=== PATIENT | female | born 1955 | race Caucasian/White ===

== ENCOUNTER → 2017-05-13 | Outpatient (CLI) | payer OTHER | LOC: FIMAGING 09:27 | PROVIDERS: ATTEND Physician Assistant Medical | DX: Z12.39 Encounter for other screening for malignant neoplasm of breast (principal); R59.0 Localized enlarged lymph nodes | CPT/HCPCS: G0202; G0204 ==

== ENCOUNTER → 2017-05-20 | Outpatient (CLI) | payer OTHER ==
[~2017-05-20] MED LIST: BUPIVACAINE 0.5% 10 ML SDV ONE; LIDO/EPI 1% **Not for Epidural 20 ML MDV ONE; LIDOCAINE 1% 300 MG/30 ML SDV ONE; THROMBIN (BOVINE) 5,000 UNIT VIAL TP ONE
== END ==
LOC: FIMAGING 07:08
PROVIDERS: ATTEND Obstetrics & Gynecology Gynecology
PROC: 0HBT3ZX Excision of Right Breast, Percutaneous Approach, Diagnostic (ICD-10-PCS; principal; 2017-05-20)
DX: C50.911 Malignant neoplasm of unspecified site of right female breast (principal)

== ENCOUNTER → 2017-06-08 | Outpatient (CLI) | payer OTHER ==
[~2017-06-08] MED LIST changes: -BUPIVACAINE 0.5% 10 ML SDV ONE; +GADOBUTROL 10 ML VIAL IVP ONE; -LIDO/EPI 1% **Not for Epidural 20 ML MDV ONE; -LIDOCAINE 1% 300 MG/30 ML SDV ONE; -THROMBIN (BOVINE) 5,000 UNIT VIAL TP ONE
== END ==
LOC: FIMAGING 06:57
PROVIDERS: ATTEND Internal Medicine Hematology & Oncology
DX: C50.911 Malignant neoplasm of unspecified site of right female breast (principal); N63.20 Unspecified lump in the left breast, unspecified quadrant
CPT/HCPCS: 0159T; A9585; C8908

== ENCOUNTER 2017-06-17 06:47 | Day surgery (SDC) | payer OTHER ==
[~2017-06-17 06:47] MED LIST changes: -GADOBUTROL 10 ML VIAL IVP ONE; +ceFAZolin 2 GM/DEXTROSE 100 ML IV ONE
--- NOTE | 2017-06-17 07:03 | PDHPUP ---
History & Physical Update H&P update statement: This history and physical update is based on an assessment of the patient which was completed after admission or registration (within 24 hours), but prior to the surgery/procedure. H&P update: H&P reviewed & patient examined, no change in patient's condition since H&P completed
--- NOTE | 2017-06-17 07:12 | PDGENHP ---
History and Physical History and Physical: Harmony Navarro is a 62 yo female who was referred to me by her PCP, Lesa Adames PA-C, for recently diagnosed right breast cancer. Harmony had a palpable right breast lump on physical exam that prompted a diagnostic bilateral mammogram on 05/13/2017, which showed a suspicious persistent nodule. This was followed up with a diagnostic US that reported suspicioun for a nodule in the right breast c/w a diseased intramammary LN. Harmony then underwent right breast needle biopsy on 05/20/2017 at 9 o'clock 8 cm from the nipple. Her pathology revealed she has an infiltrating ductal carcinoma, and r/o both the mass being a LN, and showed no evidence of lymphovascular involvement. The tumor is also characterized as Hira grade II/III, ER/PgR (+), with [id number] pending. Harmony had previously had a negative screening mammogram in 2016. Today, Harmony tells me she discovered the lump herself on exam. 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 She says that she will be seeing Dr. Kumar for oncology. (+) Breast Cancer in maternal grandmother and her maternal great aunt; (-) Prostate; (+) Grandmother's Neice; (-) Ovarian PMHx, PSHx, Daily medications, and Drug allergies reconciled in the exam room, and are accurate as listed below. PMH: DM, HTN, HLD ROS: 10 point review of systems is negative PE:Pleasant, well nourished and well groomed NCAT, PER, no scleral icterus CTAB RRR Breast mass 9 o'clock position 10 cm from the nipple A/P: 62 year old with right breast invasive ductal carcinoma I advised Harmony that she is a good candidate for a lumpectomy. We discussed the usual course of a lumpectomy, the sentinel lymph node biopsy, and the general timeline for pathology results intra and post-operatively. I described her likely course of recovery including pain management, and then the associated risks including bleeding, infection, breast deformity, delayed wound healing, the need to revise the lumpectomy at a later time, and the possibility an axillary dissection will be indicated. I explained that she will undergo radiation therapy if she chooses lumpectomy, and we discussed the 2 different courses available for that treatment.
[2017-06-17] MEDS ORDERED: LR 1,000 ML IV ONE (07:15)
[2017-06-17] MEDS ORDERED: LIDOCAINE 1% 2 ML INJ ID PRN (07:15)
[2017-06-17] MEDS ORDERED: ceFAZolin 2 GM/SWFI 2 GM/20 ML SYR IVP ONE (08:00)
--- NOTE | 2017-06-17 08:04 | PDANEPAE ---
ANE History of Present Illness 62 yo female with infiltrating ductal R breast cancer. ANE Past Medical History - Cardiovascular History Hx Hypertension: Yes Hx Arrhythmias: No Hx Chest Pain: No Hx Coronary Artery / Peripheral Vascular Disease: No Hx CHF / Valvular Disease: No Hx Palpitations: No Cardiovascular History Comment: pcp monitors bp meds, hypercholesterolemia - Pulmonary History Hx COPD: No Hx Asthma/Reactive Airway Disease: No Hx Recent Upper Respiratory Infection: No Hx Oxygen in Use at Home: No Hx Sleep Apnea: Yes Sleep Apnea Screening Result - Last Documented: Positive Pulmonary History Comment: seda positive uses cpap- instructed pt to bring dos - Neurologic History Hx Cerebrovascular Accident: No Hx Seizures: No Hx Dementia: No - Endocrine History Hx Diabetes: Yes Hypothyroid: No Endocrine History Comment: type 2 - Renal History Hx Renal Disorders: No - Liver History Hx Hepatic Disorders: No - Neurological & Psychiatric Hx Hx Neurological and Psychiatric Disorders: No - Cancer History Hx Cancer: Yes Cancer History Comment: breast cancer currently - Congenital Disorder History Hx Congenital Disorders: No - GI History Hx Gastrointestinal Disorders: No - Other Health History Other Health History: wears glasses - Chronic Pain History Chronic Pain: No - Surgical History Prior Surgeries: na ANE Review of Systems Review of Systems: - Exercise capacity METS (RN): 4 METS - Systems Constitutional: Reports: no symptoms Cardiac: Reports: no symptoms Respiratory: Reports: cough (dry cough x1 week. No fevers, non-productive. Pt believes it is allergy related.) Gastrointestinal: Reports: no symptoms ANE Patient History - Allergies Allergies/Adverse Reactions: No Known Allergies Allergy (Verified 05/31/17 16:10) - Home Medications Home medications: home medication list seen and reviewed Home Medications: Doxazosin Mesylate 05/31/17 [Last Taken 06/17/17] Herbals/Supplements -Info Only 05/31/17 [Last Taken 06/10/17] Losartan Potassium 05/31/17 [Last Taken 06/17/17] Metformin 1000 mg 05/31/17 [Last Taken 06/14/17] Metoprolol Succinate 05/31/17 [Last Taken 06/17/17] Spironolactone 05/31/17 [Last Taken 06/16/17] - NPO status NPO Since - Liquids (Date): 06/17/17 NPO Since - Liquids (Time): 04:30 NPO Since - Solids (Date): 06/16/17 NPO Since - Solids (Time): 19:00 - Anes Hx Anes Hx: awareness under anesthesia Hx Anesthesia Complications (with details): aware for colonoscopy. Wants to be more asleep for this procedure. - Smoking Hx Smoking Status: Never smoked Marijuana use: No - Alcohol Use Alcohol Use: Occasionally - Family Anes Hx Family Anes Hx: neg - N/A Family Hx Anesthesia Complications: none ANE Labs/Vital Signs - Vital Signs Blood Pressure: 142/93 Heart Rate: 87 Respiratory Rate: 18 O2 Sat (%): 95 Height: 162.56 cm Weight: 102.058 kg ANE Physical Exam - Airway Neck exam: FROM Mallampati Score: Class 2 Mouth exam: normal dental/mouth exam - Pulmonary Pulmonary: no rales or rhonchi, clear to auscultation - Cardiovascular Cardiovascular: regular rate and rhythym, systolic murmur (pt has long-standing heart murmur.) - ASA Status ASA Status: III ANE Anesthesia Plan Anesthesia Plan: GA w LMA
[2017-06-17] MEDS ORDERED: INSULIN REGULAR HUMAN 100 UNIT/ML SC ONE (08:08)
[2017-06-17] MEDS ORDERED: LIDOCAINE 1% 300 MG/30 ML SDV ONE (08:55)
[2017-06-17] MEDS ORDERED: BUPIVACAINE 0.5% 30 ML SDV ONE (08:55)
[2017-06-17] MEDS ORDERED: PROPOFOL/EMULSION 500 MG/50 ML BOTTLE IV ONE (09:05)
[2017-06-17] MEDS ORDERED: LIDOCAINE 2% 5 ML SDV ONE (09:05)
[2017-06-17] MEDS ORDERED: DEXAMETHASONE 4 MG/ML VIAL ONE ×2 (09:05)
[2017-06-17] MEDS ORDERED: fentaNYL 100 MCG/2 ML INJ ONE (09:05)
[2017-06-17] MEDS ORDERED: ONDANSETRON 4 MG/2 ML VIAL ONE (09:29)
[2017-06-17] MEDS ORDERED: KETOROLAC 30 MG/1 ML SDV ONE (09:39)
[2017-06-17] MEDS ORDERED: fentaNYL 100 MCG/2 ML INJ IVP PRN (09:48)
[2017-06-17] MEDS ORDERED: LR 500 ML IV PRN (09:48)
[2017-06-17] MEDS ORDERED: HYDROCODONE/APAP 5/325 TAB PO PRN (09:48)
[2017-06-17] MEDS ORDERED: ALBUTEROL 3 ML DEYVIAL IH PRN (09:48)
[2017-06-17] MEDS ORDERED: NALOXONE HCL 0.4 MG/ML INJ IVP PRN ×2 (09:48)
[2017-06-17] MEDS ORDERED: PROMETHAZINE HCL 25 MG/ML INJ IVP PRN (09:48)
[2017-06-17] MEDS ORDERED: ACETAMINOPHEN 500 MG TAB PO PRN (09:48)
--- NOTE | 2017-06-17 09:56 | POSTOPPROG ---
Post Op Note Date of Operation: 06/17/17 Surgeon: Narcisa Jones Research Psychologist: bhavin Anesthesiologist: rah Anesthesia: GET(General Endotracheal) Pre-op Diagnosis: R breast ca Post-op Diagnosis: same Indication: 62yo F with r breast invasive ductal ca Procedure: r lumpectomy with SLN biopsy Findings: SLN negative, palpable mass Inf/Abcess present in the surg proc area at time of surgery?: No Depth: Deep Incisional (Fascial) EBL: Minimal Specimen(s): R lumpectomy R SLN R breast additional margins x 5
[2017-06-17 10:29] VITALS: TEMP 97.2
--- NOTE | 2017-06-17 10:31 | POSTANESTH ---
Post Anesthetic Evaluation Cardiovascular Status: Normal, Stable Respiratory Status: Normal, Stable Level of Consciousness/Mental Status: Can Participate in Eval, Mildly Sleepy, Arousable Pain Control: Adequate, Prn Tx Ordered Nausea/Vomiting Control: Adequate, Prn Tx Ordered Complications Possibly Related to Anesthesia: None Noted (BS 137, no further interventions required.)
[2017-06-17] MEDS ORDERED: ENALAPRILAT DIHYDRATE 1.25 MG/ML VIAL ONE (11:08)
[2017-06-17] MEDS: ENALAPRILAT DIHYDRATE 1.25 MG/ML VIAL IVP PRN ×2 (11:09→11:34)
[2017-06-17 12:44] VITALS: PULSE 78
[2017-06-17 13:41] VITALS: BP 138/72; O2SAT 92
[2017-06-17 13:44] VITALS: RESP 13
--- NOTE | 2017-06-18 02:20 | GOP ---
[f rep st] OPERATIVE REPORT DATE OF OPERATION: 06/17/2017 SURGEON: Narcisa Jones MD LIGHTNING ROD INSTALLER: NANCY Silverman ANESTHESIA: General. ANESTHESIOLOGIST: Aria Askew MD PREOPERATIVE DIAGNOSIS: Right breast cancer. POSTOPERATIVE DIAGNOSIS: Right breast cancer. PROCEDURE PERFORMED: Right breast lumpectomy and right sentinel lymph node. FINDINGS: [facility] lymph node negative. SPECIMENS: Right breast lumpectomy, right sentinel lymph node, and additional margins. ESTIMATED BLOOD LOSS: 10 cc. INDICATIONS: The patient is a 62-year-old with right breast cancer. DESCRIPTION OF PROCEDURE: The patient was brought into the operating room, placed supine on the tabl e, and anesthesia was administered. Her right breast and axilla were prepped and draped in the usual sterile fashion. I made ellipse around the mass and created superior and inferior skin flaps. I di ssected down beyond the level of the mass. I inked this green anterior, red superior, yellow medial, orange lateral, blue inferior, black posterior. Submitted this to Pathology for fresh. I then, usi ng the same incision, was able to break into the axillary space. I identified the sentinel lymph nod e using the gamma probe. I excised this and sent it to Pathology for frozen. The lymph node was neg ative. In the lumpectomy cavity, I took an additional superior margin inked red, medial margin inked yellow, inferior margin inked blue, lateral margin inked orange, and posterior margin inked black. These were submitted to Pathology for permanent. Each wound was inspected for hemostasis, which was achieved. The wound was closed with 3-0 Vicryl followed by 4-0 Monocryl. Mastisol, Steri-Strips, an d sterile dressing were applied. She was awakened in the operating room, transferred to PACU in stab le condition. /[id number]/MODL
== END 2017-06-17 14:07 | disposition home or self-care (01) ==
LOC: FSGY 06:47
PROVIDERS: ATTEND Surgery
DX: C50.811 Malignant neoplasm of overlapping sites of right female breast (principal); Z17.0 Estrogen receptor positive status [ER+]; Z80.3 Family history of malignant neoplasm of breast; E11.9 Type 2 diabetes mellitus without complications; I10 Essential (primary) hypertension; E78.5 Hyperlipidemia, unspecified
CPT/HCPCS: 19301; 38500; 78195; A9520; J0690; J1100; J1885; J2405; J2704; J3010

== ENCOUNTER 2017-06-24 11:50 | Day surgery (SDC) | payer OTHER ==
[2017-06-24] MEDS ORDERED: BUPIVACAINE 0.5% 30 ML SDV ONE (12:58)
--- NOTE | 2017-06-24 13:31 | PDANEPAE ---
ANE History of Present Illness 62 year old female w/ PMHx of obesity, HTN, MARIANA (w/ CPAP), DM2 and breast cancer presets for re-excision of R breast margins. ANE Past Medical History - Cardiovascular History Hx Hypertension: Yes Hx Arrhythmias: No Hx Chest Pain: No Hx Coronary Artery / Peripheral Vascular Disease: No Hx CHF / Valvular Disease: No Hx Palpitations: No Cardiovascular History Comment: pcp monitors bp meds, hypercholesterolemia - Pulmonary History Hx COPD: No Hx Asthma/Reactive Airway Disease: No Hx Recent Upper Respiratory Infection: No Hx Oxygen in Use at Home: No Hx Sleep Apnea: Yes Sleep Apnea Screening Result - Last Documented: Positive Pulmonary History Comment: mariana positive uses cpap- instructed pt to bring dos - Neurologic History Hx Cerebrovascular Accident: No Hx Seizures: No Hx Dementia: No - Endocrine History Hx Diabetes: Yes Endocrine History Comment: type 2 - Renal History Hx Renal Disorders: No - Liver History Hx Hepatic Disorders: No - Neurological & Psychiatric Hx Hx Neurological and Psychiatric Disorders: No - Cancer History Hx Cancer: Yes Cancer History Comment: breast cancer currently - Congenital Disorder History Hx Congenital Disorders: No - GI History Hx Gastrointestinal Disorders: No - Other Health History Other Health History: wears glasses - Chronic Pain History Chronic Pain: No - Surgical History Prior Surgeries: na ANE Review of Systems Review of Systems: - Exercise capacity Exercise capacity: >=4 METS METS (RN): 4 METS ANE Patient History - Allergies Allergies/Adverse Reactions: No Known Allergies Allergy (Verified 05/31/17 16:10) - Home Medications Home medications: home medication list seen and reviewed Home Medications: Doxazosin Mesylate 05/31/17 [Last Taken 06/24/17] Herbals/Supplements -Info Only 05/31/17 [Last Taken 06/20/17] Losartan Potassium 05/31/17 [Last Taken 06/24/17] Metformin 1000 mg 05/31/17 [Last Taken 06/21/17] Metoprolol Succinate 05/31/17 [Last Taken 06/24/17] Spironolactone 05/31/17 [Last Taken 06/23/17] Hydrocodone/Acetaminophen [[place] 5/325 (*)] 06/23/17 [Last Taken Unknown] - NPO status NPO Since - Liquids (Date): 06/23/17 NPO Since - Liquids (Time): 21:00 NPO Since - Solids (Date): 06/23/17 NPO Since - Solids (Time): 21:00 - Smoking Hx Smoking Status: Never smoked - Family Anes Hx Family Hx Anesthesia Complications: none ANE Labs/Vital Signs - Vital Signs Vital Signs: reviewed preoperatively; see RN documention for details Blood Pressure: 128/78 Heart Rate: 94 Respiratory Rate: 14 O2 Sat (%): 97 Height: 162.56 cm Weight: 104.326 kg ANE Physical Exam - Airway Neck exam: FROM Mallampati Score: Class 2 - Cardiovascular Cardiovascular: no murmur, rub, or gallop - ASA Status ASA Status: III ANE Anesthesia Plan Anesthesia Plan: GA w LMA Total IV Anesthesia: No
[2017-06-24] MEDS ORDERED: PROPOFOL/EMULSION 500 MG/50 ML BOTTLE IV ONE ×2 (14:11→14:29)
[2017-06-24] MEDS ORDERED: KETOROLAC 30 MG/1 ML SDV ONE (14:35)
[2017-06-24] MEDS ORDERED: fentaNYL 100 MCG/2 ML INJ IVP PRN (14:44)
[2017-06-24] MEDS ORDERED: ONDANSETRON 4 MG/2 ML VIAL IVP PRN (14:44)
[2017-06-24] MEDS ORDERED: HYDROmorphONE/DILAUDID 1 MG/ML INJ IVP PRN (14:44)
[2017-06-24] MEDS ORDERED: LR 500 ML IV PRN (14:44)
[2017-06-24] MEDS ORDERED: HYDROCODONE/APAP 5/325 TAB PO PRN (14:44)
[2017-06-24] MEDS ORDERED: NALOXONE HCL 0.4 MG/ML INJ IVP PRN (14:44)
[2017-06-24] MEDS ORDERED: ONDANSETRON 4 MG/2 ML VIAL ONE ×2 (14:47→15:10)
[2017-06-24] MEDS ORDERED: DEXAMETHASONE 4 MG/ML VIAL ONE (14:47)
--- NOTE | 2017-06-24 14:48 | POSTOPPROG ---
Post Op Note Date of Operation: 06/24/17 Surgeon: Narcisa Jones Anesthesiologist: pretty Anesthesia: GET(General Endotracheal) Pre-op Diagnosis: right invasive ductal positive medial margin Post-op Diagnosis: same Indication: 62 yo with invasive ductal and positive medial margin Procedure: r re excision medial margin Inf/Abcess present in the surg proc area at time of surgery?: No Specimen(s): medial margin ink purple
[2017-06-24 15:05] VITALS: PULSE 75
[2017-06-24 15:43] VITALS: RESP 20
[2017-06-24 16:07] VITALS: BP 140/69
[2017-06-24 16:47] VITALS: TEMP 97.9; O2SAT 92
--- NOTE | 2017-06-24 18:06 | POSTANESTH ---
Post Anesthetic Evaluation Cardiovascular Status: Normal, Stable, Similar to Pre-Op Cond Respiratory Status: Normal, Stable, Similar to Pre-op Cond. Level of Consciousness/Mental Status: Can Participate in Eval, Alert and Oriented Pain Control: Adequate, Prn Tx Ordered Nausea/Vomiting Control: Adequate, Prn Tx Ordered Complications Possibly Related to Anesthesia: None Noted
--- NOTE | 2017-06-25 09:01 | GOP ---
[f rep st] OPERATIVE REPORT DATE OF OPERATION: 06/24/2017 SURGEON: Narcisa Jones MD ANESTHESIA: General. ANESTHESIOLOGIST: Juan Antonio Grimaldo MD PREOPERATIVE DIAGNOSIS: Right breast invasive ductal carcinoma upper outer quadrant with positive me dial margin. POSTOPERATIVE DIAGNOSIS: Right breast invasive ductal carcinoma upper outer quadrant with positive m edial margin. PROCEDURE PERFORMED: Re-excision medial margin right breast upper outer quadrant. FINDINGS: Seroma and no unusual findings. SPECIMENS: New medial margin, inked purple. ESTIMATED BLOOD LOSS: 5 cc. INDICATIONS: The patient is a 62-year-old woman who recently underwent lumpectomy and sentinel lymph node for invasive ductal carcinoma. She had a positive medial margin. DESCRIPTION OF PROCEDURE: The patient was brought into the operating room and placed supine on the t able, and general anesthesia was administered. Her right breast was prepped and draped in the usual sterile fashion. I infiltrated the area with 20 cc of 0.5% Marcaine. I made an incision over her pr evious scar. I evacuated the seroma. I excised an additional portion of the medial margin. I inked the new margin purple. This was submitted to Pathology for permanent. The deep layer was closed wi th 3-0 Vicryl, skin closed with 3-0 Vicryl followed by 4-0 Monocryl. Mastisol, Steri-Strips, sterile dressing were applied. She was awakened in the operating room, extubated and transferred to PACU in stable condition. /[id number]/MODL
== END 2017-06-24 16:35 | disposition home or self-care (01) ==
LOC: FSGY 11:50
PROVIDERS: ATTEND Surgery
PROC: 0HBT0ZZ Excision of Right Breast, Open Approach (ICD-10-PCS; principal; 2017-06-24 13:30)
DX: C50.411 Malignant neoplasm of upper-outer quadrant of right female breast (principal); I10 Essential (primary) hypertension; G47.33 Obstructive sleep apnea (adult) (pediatric); E11.9 Type 2 diabetes mellitus without complications
CPT/HCPCS: J1100; J1885; J2405; J2704

== ENCOUNTER → 2017-12-22 | Outpatient (CLI) | payer OTHER | LOC: FIMAGING 11:02 | PROVIDERS: ATTEND Internal Medicine Hematology & Oncology | DX: Z13.820 Encounter for screening for osteoporosis (principal); Z85.3 Personal history of malignant neoplasm of breast; Z78.0 Asymptomatic menopausal state ==

== ENCOUNTER → 2018-05-16 | Outpatient (CLI) | payer OTHER | LOC: FIMAGING 15:50 | PROVIDERS: ATTEND Physician Assistant Medical | DX: Z12.31 Encounter for screening mammogram for malignant neoplasm of breast (principal) ==